=== PATIENT | male | born 1970 | race Hispanic/Latino ===

== ENCOUNTER 2020-09-24 09:31 | Emergency (ER) | payer MEDICARE ==
[2020-09-24 09:55] VITALS: BP 115/81
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
== END 2020-09-24 12:40 | disposition home or self-care (01) ==
LOC: ED 09:31
DX: L02.811 Cutaneous abscess of head [any part, except face] (principal); L02.512 Cutaneous abscess of left hand
CPT/HCPCS: 99282

== ENCOUNTER 2020-09-30 08:35 | Emergency (ER) | payer MEDICARE ==
[2020-09-30 09:35] LABS: Alanine Aminotransferase 14 units/L (7-56); Albumin 4.5 g/dL (3.9-5); Blood Urea Nitrogen 12 mg/dL (9-20); Calcium 9.4 mg/dL (8.4-10.2); Hemolysis Index 4
[2020-09-30 10:05] LABS: BUN/Creatinine Ratio 17; Hematocrit 30.9 % (35.5-45.6); Hemoglobin 10.8 gm/dl (11.8-15.2); Mean Corpuscular HGB Conc 35 % (32-34); Mean Corpuscular Volume 88 fl (84-94); Platelet Count 423 K/mm3 (140-440); Red Blood Count 3.53 M/mm3 (3.65-5.03); Red Cell Distribution Width 17.8 % (13.2-15.2)
[2020-09-30 10:54] LABS: Bilirubin,Urine NEG (Negative); Blood,Urine NEG (Negative); Color,Urine Yellow (Yellow); Mucus,Urine FEW /HPF; Urobilinogen,Urine < 2.0 mg/dL (<2.0)
[2020-09-30 11:58] LABS: Band Neutrophils # (Manual) 57.2 K/mm3; Myelocytes # (Manual) 11.9 K/mm3; Promyelocytes # (Manual) 66.8 K/mm3; Total Cells Counted 100
[2020-09-30 12:00] LABS: Anisocytosis 1+; Platelet Estimate Consistent w Auto; Schistocytes Rare
[2020-09-30] MEDS ORDERED: SODIUM CHLORIDE 0.9% 1000 ML 1,000 ML IV ONE (12:19)
[2020-09-30] MEDS ORDERED: ONDANSETRON 4 MG/2 ML INJ IV ONE (12:19)
[2020-09-30] MEDS ORDERED: fentaNYL 250 MCG/5 ML INJ IV ONE (12:20)
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
[2020-09-30] MEDS ORDERED: fentaNYL 100 MCG/2 ML INJ IV NR (12:30)
--- NOTE | 2020-09-30 13:17 | Cat Scan Report ---
CT ABDOMEN AND PELVIS WITH CONTRAST INDICATION / CLINICAL INFORMATION: abdominal pain,left flank pain,h/o leukemia OMNI 300 100 ML. TECHNIQUE: Axial CT images were obtained through the abdomen and pelvis after IV contrast. All CT sc ans at this location are performed using CT dose reduction for ALARA by means of automated exposure c ontrol. COMPARISON: None available. FINDINGS: LOWER CHEST: Mild emphysematous changes. LIVER: The liver is enlarged measuring 24 cm. GALLBLADDER: No significant abnormality. BILE DUCTS: No significant abnormality. PANCREAS: No significant abnormality. SPLEEN: The spleen is massively dilated measuring up to 29 cm. There are a few hypodensities througho ut the spleen which are nonspecific but could represent areas of infarction. ADRENALS: No significant abnormality. RIGHT KIDNEY / URETER: No significant abnormality. LEFT KIDNEY / URETER: Mild left hydronephrosis at the lower pole. No obstructing stone. STOMACH / SMALL BOWEL: Small hiatal hernia. The small bowel is nondilated. COLON: No significant abnormality. APPENDIX: No significant abnormality. PERITONEUM: No free fluid. No free air. No fluid collection. LYMPH NODES: No significant adenopathy. AORTA / ARTERIES: Mild atherosclerotic calcification without acute abnormality. IVC / VEINS: No significant abnormality. URINARY BLADDER: No significant abnormality. REPRODUCTIVE ORGANS: No significant abnormality. ADDITIONAL FINDINGS: None. SKELETAL SYSTEM: Advanced degenerative changes at L5-S1. No destructive osseous lesion. IMPRESSION: 1. Massive splenomegaly with suspected areas of infarction in the spleen. 2. Hepatomegaly. 3. Mild hydronephrosis of the left kidney, likely due to mass effect from adjacent splenomegaly. Signer Name: Clint Escobedo MD Signed: 09/30/2020 1:13 PM Workstation Name: [id number]
[2020-09-30] MEDS ORDERED: fentaNYL 100 MCG/2 ML INJ IV ONE ×3 (14:00→19:16)
[2020-09-30 20:14] VITALS: BP 104/63
== END 2020-09-30 22:16 | disposition other institution (70) ==
LOC: ED 08:35
DX: D73.5 Infarction of spleen (principal); C92.10 Chronic myeloid leukemia, BCR/ABL-positive, not having achieved remission
CPT/HCPCS: 36415; 74177; 80053; 81001; 85007; 85025; 88184; 88185; 96361; 96374; 96375; 96376; 99291; J2405; J3010; J7030; Q9967